=== PATIENT | male | born 1965 | race Caucasian/White ===

== ENCOUNTER 2017-10-16 16:15 | Emergency (ER) | payer OTHER ==
[~2017-10-16] VITALS: Ht 182.9 cm; Wt 130.0 kg
[2017-10-16] MEDS ORDERED: KETOROLAC 30 MG/1 ML IM ONE (17:00)
[2017-10-16] MEDS ORDERED: ALBUTEROL/IPRATROPIUM 2.5MG/0.5MG, 3 ML NPPB ONE (17:00)
[2017-10-16] MEDS ORDERED: KETOROLAC 30 MG/1 ML ONE (17:04)
[2017-10-16] MEDS ORDERED: ALBUTEROL/IPRATROPIUM 2.5MG/0.5MG, 3 ML ONE (17:15)
[2017-10-16 18:45] VITALS: BP 141/77
== END 2017-10-16 18:46 | disposition home or self-care (01) ==
LOC: ED 17:53
DX: J45.909 Unspecified asthma, uncomplicated (principal); R07.89 Other chest pain
CPT/HCPCS: 71046; 94640; 96372; 99284; J1885; J7512; J7620